=== PATIENT | male | born 1965 | race Caucasian/White ===

== ENCOUNTER 2020-02-21 14:12 | Emergency (ER) | payer OTHER ==
[~2020-02-21] VITALS: Ht 182.9 cm; Wt 90.7 kg
--- NOTE | 2020-02-21 14:25 | NUR ---
TANAP PA AT BEDSIDE FOR EVAL.
[2020-02-21] MEDS ORDERED: IV NS 0.9% 1,000 ML BAG IV ONE ×2 (14:30→17:00)
[2020-02-21] MEDS ORDERED: LORAZEPAM INJ 2 MG/ML VIAL IV ONE ×2 (14:30→16:30)
[2020-02-21] MEDS ORDERED: ONDANSETRON HCL/PF 4 MG/2 ML VIAL IV ONE (14:30)
[2020-02-21] MEDS ORDERED: ONDANSETRON HCL/PF 4 MG/2 ML VIAL ONE (14:31)
[2020-02-21] MEDS ORDERED: LORAZEPAM INJ 2 MG/ML VIAL ONE ×2 (14:32→17:06)
--- NOTE | 2020-02-21 14:55 | NUR ---
RECIVED PT FROM EMT, COMPLAINING OF NOT FEELING WELL SHAKING, MD AT BEDSIDE ORDERS RECIVED AND CARRIED OUT NO DISTRESS NOTED VS STABLE IV STARTED EKG DONE MD AWARE WILL CONTINUE TO MONITOR.
[2020-02-21] MEDS ORDERED: HALOPERIDOL LACTATE INJ 5 MG/ML VIAL ONE (16:34)
[2020-02-21 16:54] LABS: BASOPHILS # (AUTO) 0.1 /CMM (0.0-0.2); BASOPHILS % (AUTO) 0.5 % (0.0-2.0); EOSINOPHILS % (AUTO) 0.6 % (0.0-6.0); HEMATOCRIT 43 % (39-51); HEMOGLOBIN 14.6 g/dL (13.5-17.5); LYMPHOCYTES # (AUTO) 2.3 /CMM (0.8-4.8); LYMPHOCYTES % (AUTO) 16.9 % (20.0-44.0); MEAN CORPUSCULAR HGB CONC 34 g/dl (31.0-36.0); MEAN CORPUSCULAR VOLUME 91 fL (80-96); MONOCYTES # (AUTO) 1.7 /CMM (0.1-1.30); MONOCYTES % (AUTO) 12.3 % (2.0-12.0); NEUTROPHILS # (AUTO) 9.6 /CMM (1.8-8.9); NEUTROPHILS % (AUTO) 69.7 % (43.0-81.0); PLATELET COUNT (AUTO) 152 /CMM (150-450); RED BLOOD CELL COUNT(AUTO) 4.71 MIL/uL (4.5-6.0); WHITE BLOOD COUNT (AUTO) 13.7 K/uL (4.3-11.0)
[2020-02-21] MEDS ORDERED: HALOPERIDOL LACTATE INJ 5 MG/ML VIAL IM ONE (17:00)
[2020-02-21 17:07] LABS: ALANINE AMINOTRANSFERASE 25 U/L (12-78); ALBUMIN 3.8 g/dL (3.4-5.0); ALCOHOL, BLOOD < 3 mg/dL (0-0); ALKALINE PHOSPHATASE 62 U/L (46-116); ASPARTATE AMINOTRANSFERASE 66 U/L (15-37); BILIRUBIN,DIRECT 0.1 mg/dL (0.0-0.2); BILIRUBIN,TOTAL 1.2 mg/dL (0.2-1.0); CALCIUM, SERUM 8.9 mg/dL (8.5-10.1); CARBON DIOXIDE 23 mmol/L (21-32); CHLORIDE 104 mmol/L (98-107); CREATININE 1.2 mg/dL (0.6-1.3); GLUCOSE 95 mg/dL (74-106); POTASSIUM 3.6 mmol/L (3.5-5.1); SODIUM SERUM 140 mmol/L (136-145); TOTAL PROTEIN, SERUM 7.7 g/dL (6.4-8.2); UREA NITROGEN, BLOOD 33 mg/dL (7-18)
[2020-02-21 17:08] LABS: ACETAMINOPHEN < 2 ug/ml (10-30); SALICYLATE 2.2 mg/dL (2.8-20.0)
--- NOTE | 2020-02-21 17:15 | NUR ---
PT STILL NOTED TO BE RESTLESS. UNABLE TO STAY STILL. ZEP PA AT BEDSIDE. MEDICATED ORDERED.
--- NOTE | 2020-02-21 17:59 | NUR ---
SLEEPING. ON MONITOR. W/ STABLE VITALS. WILL CONTINUE TO MONITOR.
[2020-02-21 18:32] LABS: CREATINE KINASE, TOTAL 1321 U/L (39-308)
--- NOTE | 2020-02-21 19:07 | NUR ---
REPORT GIVEN TO VACUUM APPLICATOR OPERATOR NURSE DARBY ESPARZA FOR [facility].
--- NOTE | 2020-02-21 19:36 | NUR ---
Patient is sleeping. Easily arousable through verbal and tactile stimuli. Breathing evenly and unlabored on room air. Connected to cardiac exercise physiologist. Sitter at bedside.
--- NOTE | 2020-02-22 03:47 | NUR ---
PT REQUESTING TO BE DISCHARGED HOME. PT OK TO BE DISCHARGED, Patient discharged to home in stable condition. Written and verbal after care instructions given. Patient verbalizes understanding of instruction.Patient is awake and alert to self, day, and place. PT ambulatory with a steady gait
[2020-02-22 03:48] VITALS: BP 118/75
--- NOTE | 2020-02-23 06:37 | NUR ---
[facility] [place] [facility]
== END 2020-02-22 03:48 | disposition home or self-care (01) ==
LOC: ER 14:16
DX: F19.10 Other psychoactive substance abuse, uncomplicated (principal); F41.9 Anxiety disorder, unspecified; Z59.0 Homelessness
CPT/HCPCS: 80048; 80076; 80307; 80329; 82550; 85025; 93005; 96372; 96374; 96375; 96376; 99285; G0480; J1630; J2060 ×2; J2405; J7030; 36415